=== PATIENT | male | born 1955 | race Caucasian/White ===

== ENCOUNTER → 2019-09-11 | Outpatient (CLI) | payer MEDICARE ==
--- NOTE | 2019-09-12 10:52 | ECHOF ---
Referral Reason:R06.02 R60.9 R00.0 MEASUREMENTS -------- HEIGHT: 188.0 cm WEIGHT: 104.8 kg BP: 110/72 RVIDd: 3.5 cm (< 3.3) IVSd: 1.3 cm (0.6 - 1.1) LVIDd: 5.3 cm (3.9 - 5.3) LVPWd: 1.2 cm (0.6 - 1.1) IVSs: 1.5 cm LVIDs: 5.0 cm LVPWs: 1.5 cm LA Diam: 4.0 cm (2.7 - 3.8) LAESV Index (A-L): 32.13 ml/m Ao Diam: 3.5 cm (2.0 - 3.7) AV Cusp: 2.2 cm (1.5 - 2.6) MV EXCURSION: 18.048 mm (> 18.000) MV EF SLOPE: 93 mm/s (70 - 150) EPSS: 1.9 cm RAP: 5.00 mmHg RVSP: 45.27 mmHg FINDINGS -------- Resting tachycardia (HR>100bpm). This was a technically difficult study with suboptimal apical views. The left ventricular size is normal. There is mild concentric left ventricular hypertrophy. Overa ll left ventricular systolic function is severely impaired with, an EF between 20 - 25 %. The right ventricle is mildly enlarged. LA is midly dilated 29-33ml/m2. The right atrium is normal in size. 5 ml of Lumason was utilized for enhancement of images. Interatrial and interventricular septum intact. The aortic valve is trileaflet and appears structurally normal. The mitral valve leaflets are mildly thickened. Mild mitral annular calcification present. Mild m itral regurgitation is present. Mild tricuspid regurgitation present. There is mild pulmonary hypertension. The right ventricular systolic pressure, as measured by Doppler, is 45.27mmHg. Trace/mild (physiologic) pulmonic regurgitation. The aortic root size is normal. Normal inferior vena cava with normal inspiratory collapse consistent with estimated right atrial pre ssure of 5 mmHg. There is a trivial pericardial effusion present. Pleural Effusion with Fibrin. CONCLUSIONS -------- 1. Resting tachycardia (HR>100bpm). 2. This was a technically difficult study with suboptimal apical views. 3. The left ventricular size is normal. 4. There is mild concentric left ventricular hypertrophy. 5. Overall left ventricular systolic function is severely impaired with, an EF between 20 - 25 %. 6. The right ventricle is mildly enlarged. 7. LA is midly dilated 29-33ml/m2. 8. The right atrium is normal in size. 9. 5 ml of Lumason was utilized for enhancement of images. 10. Interatrial and interventricular septum intact. 11. The aortic valve is trileaflet and appears structurally normal. 12. The mitral valve leaflets are mildly thickened. 13. Mild mitral annular calcification present. 14. Mild mitral regurgitation is present. 15. Mild tricuspid regurgitation present. 16. There is mild pulmonary hypertension. 17. The right ventricular systolic pressure, as measured by Doppler, is 45.27mmHg. 18. Trace/mild (physiologic) pulmonic regurgitation. 19. The aortic root size is normal. 20. Normal inferior vena cava with normal inspiratory collapse consistent with estimated right atrial pressure of 5 mmHg. 21. There is a trivial pericardial effusion present. 22. Pleural Effusion with Fibrin. BAKERY TEAM MEMBER: Angelina Rivera RDCS
== END ==
LOC: RADECHMAIN 15:09
PROVIDERS: ATTEND Family Medicine
DX: I08.2 Rheumatic disorders of both aortic and tricuspid valves (principal); I27.20 Pulmonary hypertension, unspecified; R00.0 Tachycardia, unspecified; J90 Pleural effusion, not elsewhere classified; J94.1 Fibrothorax
CPT/HCPCS: 93306; Q9950

== ENCOUNTER → 2019-10-23 | Day surgery (SDC) | payer MEDICARE ==
[2019-10-19 14:28] VITALS: BMI 28.0
[~2019-10-23] MED LIST: ALPRAZolam 0.25 MG TAB PO PRN; ALPRAZolam 0.5 MG TAB PO PRN; ASPIRIN 325 MG TAB PO STA; ATORVASTATIN 80 MG TAB PO STA; IOPAMIDOL-370 125ML BTL INJ ONE; LIDOCAINE 1% INJ 10MG/ML (20 ML MDV) ONE; LIDOCAINE 1% INJ 10MG/ML (20 ML MDV) SQ ONE; MIDAZOLAM 2 MG/2 ML VIAL IV ONE; NITROGLYCERIN SL TABS 0.4 MG TAB SUBLINGUAL PRN; RX INFO: IV CONTRAST WAS GIVEN 1 EACH MISC MISCELLANE PRN; SODIUM CHLORIDE 0.9% 1,000 ML IV SCH; SODIUM CHLORIDE 0.9% 1,000 ML in EMPTY BAG 1 BAG IV ONE
[2019-10-23 06:16] VITALS: TEMP 97.1
[2019-10-23 06:24] LABS: Glucose,Whole Blood 182 mg/dL (75-99)
--- NOTE | 2019-10-23 09:02 | CC ---
CARDIAC CATHETERIZATION REPORT DATE OF SERVICE: October 23, 2019 PERFORMING PHYSICIAN: Aaron Canales MD. PROCEDURE PERFORMED: 1. Right heart catheterization. 2. Left heart catheterization. 3. Selective left and right coronary angiogram. INDICATION: This is a 64-year-old gentleman with history of diabetes, hypertension, and dyslipidemia, who was experiencing some symptoms of shortness of breath with exertion. He underwent an echocardiogram which revealed severe cardiomyopathy with EF of 20%. Because of that, a heart catheterization was advised. APPROACH: Right common femoral artery and right common femoral vein. COMPLICATION: None. LEVEL OF SEDATION: Moderate with sedation length of 33 minutes. PROCEDURE DESCRIPTION: After obtaining an informed consent, the patient was brought to the cardiac oven laborer. The right common femoral vein was cannulated using micropuncture technique, the micropuncture wire passed easily then I placed an 8-Thai sheath in the vein. Subsequently I cannulated the artery using micropuncture technique, the micropuncture wire passed easily then I placed a 6-Thai sheath in the right common femoral artery. After that I did right heart catheterization using 6-Thai swan catheter. I could not get to the PA pressure because the catheter will not point up. I did the RV pressure and RA pressure. After that I did selective right and left coronary angiogram using JR4 and JL4 catheters. Left heart catheterization was performed using 6-Thai pigtail catheter. The procedure was completed without any complication. SELECTIVE CORONARY ANGIOGRAM: 1. The right coronary artery is a large caliber vessel and is a dominant vessel. It is calcified. The proximal right has mild disease only. The mid right has mild disease only. The right in the mid to distal portion has intermediate to severe lesion appeared to be in the range of 60%. Then right after that bifurcates into PDA and PLV branches. The PLV branch has a tight lesion about 80% to 90%, but it is only 2 to 2.5 vessel. 2. The left main is calcified with eccentric lesion appeared to be in the range of 30% to 40%. Bifurcates into LCX, ramus intermedius, and left anterior descending artery. 3. The LCX is a small to medium caliber vessel and nondominant vessel. It does have mild disease only. 4. The ramus intermedius is a medium caliber vessel with mild disease only. 5. The LAD: The very proximal LAD has eccentric calcified lesion appeared to be in the range of 70% to 80%. The mid LAD has mild disease only and gives rise into a small to medium caliber diagonal branch which has a lesion appeared to be in the range of %. The LAD after that gives rise into a second diagonal branch which seems to be normal. The LAD distally appeared to be normal. HEMODYNAMICS: 1. The RV pressures were as follows, systolic 32 and end-diastolic of 8 mmHg. 2. RA pressure was 10 mmHg. 3. LVEDP was 16 mmHg. CONCLUSION: 1. Normal right heart pressures. 2. Elevated LVEDP. 3. Intermediate to severe disease involving the mid to distal RCA and severe disease involving the PLV branch of the RCA. 4. Wcal-ql-jpixtzql disease involving the left main coronary artery. 5. Severe disease involving the very proximal LAD. POSTPROCEDURE MANAGEMENT: 1. Probably proceeding with intravascular ultrasound IVUS of the left main. 2. Review the case with cardiothoracic surgeon. 3. If the left main turned to be not severe and the patient turned down by the cardiothoracic surgeon, I would consider doing PCI of the LAD with adjunctive use of Impella. MMODL / IJN: [id number] /
[2019-10-23 13:06] VITALS: BP 112/68; PULSE 98; RESP 16
== END ==
LOC: CATHCVL 05:51
PROVIDERS: ATTEND Internal Medicine Interventional Cardiology
DX: I25.10 Atherosclerotic heart disease of native coronary artery without angina pectoris (principal); I42.9 Cardiomyopathy, unspecified; I10 Essential (primary) hypertension; E78.00 Pure hypercholesterolemia, unspecified; E11.9 Type 2 diabetes mellitus without complications; E78.5 Hyperlipidemia, unspecified; Z88.0 Allergy status to penicillin; Z79.84 Long term (current) use of oral hypoglycemic drugs; Z79.899 Other long term (current) drug therapy; Z82.49 Family history of ischemic heart disease and other diseases of the circulatory system
CPT/HCPCS: 93460; C1769 ×3; C1751; C1894 ×2; J2250; J2001; Q9967

== ENCOUNTER 2019-11-08 06:18 | Day surgery (SDC) | payer MEDICARE ==
[2019-11-06 12:16] VITALS: BMI 28.0
[2019-11-08] MEDS ORDERED: ATORVASTATIN 80 MG TAB PO STA (06:25)
[2019-11-08] MEDS ORDERED: ALPRAZolam 0.5 MG TAB PO PRN (06:25)
[2019-11-08] MEDS ORDERED: SODIUM CHLORIDE 0.9% 1,000 ML in EMPTY BAG 1 BAG IV ONE (06:25)
[2019-11-08] MEDS ORDERED: ASPIRIN 325 MG TAB PO STA (06:25)
[2019-11-08] MEDS ORDERED: ALPRAZolam 0.25 MG TAB PO PRN (06:25)
[2019-11-08] MEDS ORDERED: NITROGLYCERIN SL TABS 0.4 MG TAB SUBLINGUAL PRN ×2 (06:25→09:06)
[2019-11-08] MEDS: INSULIN ASPART (NovoLOG) 100 UNIT/ML VIAL SQ SCH ×4 (07:08→20:12)
[2019-11-08 07:19] LABS: Glucose,Whole Blood 206 mg/dL (75-99)
[2019-11-08 07:53] LABS: Calcium 8.8 mg/dL (8.4-10.2); Potassium 4.3 mmol/L (3.5-5.1)
[2019-11-08] MEDS ORDERED: MIDAZOLAM 2 MG/2 ML VIAL IVP ONE ×2 (08:37→13:50)
[2019-11-08] MEDS ORDERED: LIDOCAINE 1% INJ 10MG/ML (20 ML MDV) SQ ONE (08:38)
[2019-11-08] MEDS ORDERED: BIVALIRUDIN BOLUS 250 MG/50 ML IV ONE (08:43)
[2019-11-08] MEDS ORDERED: BIVALIRUDIN 250 MG in SODIUM CHLORIDE 0.9% 50 ML IV ONE (08:44)
[2019-11-08] MEDS ORDERED: IOPAMIDOL-370 125ML BTL INJ ONE (09:00)
[2019-11-08] MEDS ORDERED: RX INFO: IV CONTRAST WAS GIVEN 1 EACH MISC MISCELLANE PRN (09:06)
[2019-11-08] MEDS ORDERED: ZOLPIDEM 5 MG TAB PO PRN (09:06)
[2019-11-08] MEDS ORDERED: MAG HYDROX/AL HYDROX/SIMETH 30 ML CUP PO PRN (09:06)
[2019-11-08] MEDS ORDERED: ATROPINE SULFATE 0.1 MG/ML 10ML SYRINGE IV PRN (09:06)
[2019-11-08] MEDS ORDERED: SODIUM CHLORIDE 0.9% 1,000 ML IV SCH (09:15)
--- NOTE | 2019-11-08 09:59 | PCN ---
PROCEDURE NOTE DATE OF SERVICE: November 08, 2019 PERFORMING PHYSICIAN: Aaron Canales MD. PROCEDURE PERFORMED: Intravascular ultrasound IVUS of the left anterior descending artery and left main coronary artery. INDICATION: This is a 64-year-old gentleman with history of diabetes as well as hypertension and dyslipidemia who was sent to see me for further evaluation of newly diagnosed cardiomyopathy. Clinically, the patient was having symptoms of shortness of breath with minimal exertion along with symptoms of being tired and fatigued and has no energy. He underwent a heart catheterization a few weeks ago and that showed at that point, mild- to-moderate disease involving the mid shaft of the left main along with severe disease involving the proximal left anterior descending artery along with severe disease involving the PLV branch of the RCA. At that point, the decision was made toward intravascular ultrasound IVUS of the left main and if that turned to be none significant proceed with PCI of the LAD. He was brought today to undergo an intravascular ultrasound IVUS of the left main. APPROACH: Right common femoral artery. COMPLICATION: None. LEVEL OF SEDATION: Moderate with sedation length of 23 minutes. PROCEDURE DESCRIPTION: After obtaining an informed consent, the patient was brought to the cardiac microbiology lab technician. The right common femoral artery was cannulated using micropuncture technique under ultrasound guidance, after the right groin was , the micropuncture wire passed easily then I placed a 6-[place] sheath in the right common femoral artery. At that point, anticoagulation was initiated using Angiomax with bolus and drip per protocol. Subsequently, I did engage the left main using JL4 guide. I did wire it using a long whisper J wire. After that, the ultrasound catheter was prepped and advanced over the 0.014 J-wire into the proximal LAD, then I did manual pullback. The procedure was completed without any complication. FINDINGS: We did measure the minimal luminal area of the left main coronary artery which came into be at 7.2 millimeter square as well as area stenosis which came in to be at 67%. At that point, we decided to stop and consult cardiothoracic surgeon to evaluate the patient. If the patient overall felt to be a good surgical candidate, then coronary artery bypass grafting will be performed. If the patient felt to be high risk for the surgery, I would perform an atherectomy and balloon angioplasty and stenting of both the left main as well as left anterior descending artery with adjunctive use of Impella. CONCLUSION: 1. Intermediate to severe disease involving the left main coronary artery. 2. The minimal luminal area was 7.2 millimeter square and the area stenosis was 67% by IVUS. 3. We will consult cardiothoracic surgeon to evaluate the patient. JOSE DE JESUS / SHERRIE: [id number] /
[2019-11-08] MEDS ORDERED: fentaNYL (PF) 50 MCG/ML 2 ML AMP ONE (13:34)
[2019-11-08 13:37] LABS: Glucose,Whole Blood 222 mg/dL (75-99)
[2019-11-08] MEDS ORDERED: IV FLUID CONTINUATION 1,000 ML IV ONE (13:42)
[2019-11-08] MEDS: BENZOCAINE SPRAY 1 CAN TOPICAL ONE ×2 (13:46→13:48)
[2019-11-08] MEDS: MIDAZOLAM 2 MG/2 ML VIAL IVP ONE ×2 (13:48→14:00)
[2019-11-08] MEDS: fentaNYL (PF) 50 MCG/ML 2 ML AMP IVP ONE ×2 (13:48→13:50)
--- NOTE | 2019-11-08 14:24 | P.GSCN ---
History of Present Illness Consult date: 11/08/19 Reason for Consult: Coronary artery disease with left main disease Requesting physician: Aaron Canales History of present illness: This is a 64-year-old gentleman who follows on an outpatient basis with Dr. Enrrique Joseph. He has a previous medical history of hypertension, hyperlipidemia, type 2 diabetes mellitus, and new diagnosis of cardiomyopathy. Apparently he had been experiencing shortness of breath over the last several months. He used to walk approximated 2 miles a day but by the end of the summer of this year he noticed he was getting more short of breath, it was becoming harder to do the things he loved, he was constantly tired and fatigued and just had no energy. By August he also noticed lower extremity edema. He brought the symptoms to the attention of his primary care physician who ordered a trans- thoracic echocardiogram which demonstrated reduced left ventricular systolic function with an EF 20-25%, mild mitral regurgitation, mild tricuspid regurgitation, and mild pulmonary hypertension with RVSP 45.27. Due to his symptoms and echocardiogram results he was referred to Dr. Canales from [facility]. At that time the patient was started on Aldactone, lisinopril, and Lopressor, and was recommended to undergo heart catheterization. In September the patient did have a heart catheterization demonstrating left main stenosis 30-40%, proximal LAD stenosis 70-80%, mid to distal RCA 60%, and PLV 80-90%. Dr. Canales recommended the patient be discharged home to come back for IVUS. Aspirin and Crestor were added to his medication regimen. This morning the patient reported to the heart catheterization lab for IVUS which demonstrated 7.2 mm minimal luminal area of the left main coronary artery with stenosis 67%. Due to these findings Dr. Esparza from cardiothoracic surgery was consulted for recommendations for surgical revascularization versus stenting Review of Systems Review of systems was completed and was negative except as noted - Constitutional Reports fatigue - Cardiovascular Reports as per HPI, Reports decreased exercise tolerance, Reports dyspnea on exertion, Reports leg edema, Reports shortness of breath - Respiratory Reports dyspnea Past Medical History Past Medical History: Coronary Artery Disease (CAD), Diabetes Mellitus, Hyperlipidemia, Hypertension History of Any Multi-Drug Resistant Organisms: None Reported Past Surgical History: Heart Catheterization Additional Past Surgical History / Comment(s): PILONIDAL CYST X2 Past Anesthesia/Blood Transfusion Reactions: No Reported Reaction Past Psychological History: No Psychological Hx Reported Smoking Status: Never smoker Past Alcohol Use History: None Reported Past Drug Use History: None Reported - Past Family History Brother(s) Family Medical History: Deep Vein Thrombosis (DVT) Additional Family Medical History / Comment(s): FROM BLOOD CLOTS POST SURGERY 5 YEARS AGO Medications and Allergies Home Medications Medication Instructions Recorded Confirmed Type Furosemide [Lasix] 20 mg PO 1200 10/19/19 11/08/19 History Furosemide [Lasix] 40 mg PO QAM 10/19/19 11/08/19 History Metoprolol Tartrate 25 mg PO BID 10/19/19 11/08/19 History Spironolactone 25 mg PO DAILY 10/19/19 11/08/19 History sitaGLIPtin PHOSPHATE [Januvia] 100 mg PO DAILY 10/19/19 11/08/19 History Aspirin [Adult Low Dose Aspirin EC] 81 mg PO HS 11/06/19 11/08/19 History Rosuvastatin [Crestor] 20 mg PO DAILY 11/06/19 11/08/19 History Allergies Allergy/AdvReac Type Severity Reaction Status Date / Time Penicillins Allergy Anaphylaxis Verified 11/08/19 06:48 Surgical - Exam Vital Signs Temp Pulse Resp BP Pulse Ox 96.9 F L 90 18 119/74 100 11/08/19 07:18 11/08/19 07:18 11/08/19 07:18 11/08/19 07:18 11/08/19 07:18 - General well developed, well nourished, no distress, no pain - Eyes PERRL, normal ocular movement - ENT no hearing loss - Neck no masses, no bruits, trachea midline - Respiratory Lungs sounds clear bilaterally. Respirations even, nonlabored. Currently on room air with oxygen saturation 98%. No chest wall deformities. No clubbing or cyanosis present. - Cardiovascular S1, S2 present. Regular rate and rhythm, sinus rhythm on telemetry. Palpable peripheral pulses bilaterally. No edema present. No calf pain or tenderness noted. No varicosities noted. - Abdomen Abdomen: soft, non tender, bowel sounds - Genitourinary Deferred - Rectum Deferred - Integumentary no rash, no growths - Neurologic normal coordination, normal sensation - Musculoskeletal normal posture - Psychiatric oriented to time, oriented to person, oriented to place, speech is normal, memory intact Results - Labs 11/08/19 07:25 Abnormal Lab Results - Last 24 Hours (Table) 11/08/19 11/08/19 Range/Units 07:00 07:25 BUN 39 H (9-20) mg/dL Creatinine 1.33 H (0.66-1.25) mg/dL Glucose 213 H (74-99) mg/dL POC Glucose (mg/dL) 206 H (75-99) mg/dL Diabetes panel 11/08/19 Range/Units 07:25 Sodium 139 (137-145) mmol/L Potassium 4.3 (3.5-5.1) mmol/L Chloride 104 (98-107) mmol/L Carbon Dioxide 24 (22-30) mmol/L BUN 39 H (9-20) mg/dL Creatinine 1.33 H (0.66-1.25) mg/dL Glucose 213 H (74-99) mg/dL Calcium 8.8 (8.4-10.2) mg/dL Calcium panel 11/08/19 Range/Units 07:25 Calcium 8.8 (8.4-10.2) mg/dL Pituitary panel 11/08/19 Range/Units 07:25 Sodium 139 (137-145) mmol/L Potassium 4.3 (3.5-5.1) mmol/L Chloride 104 (98-107) mmol/L Carbon Dioxide 24 (22-30) mmol/L BUN 39 H (9-20) mg/dL Creatinine 1.33 H (0.66-1.25) mg/dL Glucose 213 H (74-99) mg/dL Calcium 8.8 (8.4-10.2) mg/dL Adrenal panel 11/08/19 Range/Units 07:25 Sodium 139 (137-145) mmol/L Potassium 4.3 (3.5-5.1) mmol/L Chloride 104 (98-107) mmol/L Carbon Dioxide 24 (22-30) mmol/L BUN 39 H (9-20) mg/dL Creatinine 1.33 H (0.66-1.25) mg/dL Glucose 213 H (74-99) mg/dL Calcium 8.8 (8.4-10.2) mg/dL - Imaging EKG: image reviewed Additional studies: Heart catheterization films and transthoracic echocardiogram films reviewed with Dr. Esparza Assessment and Plan Assessment: 1. Coronary artery disease with left main disease 2. Cardiomyopathy with ejection fraction 20-25% per surface echo 3. Mild mitral regurgitation, mild tricuspid regurgitation on surface echo 4. Hypertension 5. Hyperlipidemia 6. Type 2 diabetes 7. Family history of heart disease Plan: The patient was seen and examined at the bedside in the extended stay area with Dr. Esparza. Discharge and diagnostics were reviewed in detail. Case was discussed between Dr. Esparza and Dr. Canales in detail. Dr. Esparza discussed the patient's disease process. In view of patient presentation with heart failure, we will recommend obtaining MAILE for further assessment of mitral valve before final opinion regarding surgery versus PCI. Addendum: MAILE performed and shows severe left ventricle dysfunction, moderate mitral valve and tricuspid valve regurgitation, moderate to severe pulmonary hypertension. The left ventricle is dilated with global hypokinesia. The physician report is pending. Further discussion will go Dr. Canales. Would recommend continuing optimizing medical therapy for heart failure and obtaining cardiac MRI for ultimate assessment of viability, function and mitral valve regurgitation. Patient will be followed as an outpatient after obtaining the later. Time with Patient: Greater than 30
--- NOTE | 2019-11-08 14:37 | ECHOT ---
TRANSESOPHAGEAL ECHOCARDIOGRAM DATE OF SERVICE: 11/08/2019 PERFORMING PHYSICIAN: Aaron Canales MD. PROCEDURE PERFORMED: Transesophageal echocardiogram. INDICATION: This is a 64-year-old gentleman with history of cardiomyopathy who was brought today to undergo a heart catheterization. The heart catheterization revealed disease involving the left main coronary artery as well as proximal left anterior descending artery. He was referred to be seen by cardiothoracic surgeon for the evaluation of coronary artery bypass grafting. The MAILE to assess the severity of mitral regurgitation. COMPLICATION: None. LEVEL OF SEDATION: Moderate with sedation length of 15 minutes. PROCEDURE DESCRIPTION: After obtaining an informed consent, the patient was brought to the cardiac biological lab technician. The pulse oximetry and heart rate monitors were attached to the patient. Subsequently, the bite guard was placed after the throat was sprayed using lidocaine. Subsequently, the patient was turned into left lateral position. The transesophageal echocardiogram probe was advanced through the bite guard to the mid esophagus, where 2D echocardiogram images as well as color Doppler images of various cardiac structures were obtained. Particular attention was made to the mitral valve and mitral valve apparatus. We did also interrogate the interatrial septum using bubble study. We did also 2D echocardiogram images, color Doppler images, pulse-wave Doppler images, and continuous- wave Doppler images as well. The procedure was completed without any complication. FINDINGS: The left ventricle appeared to be dilated. The left ventricular systolic function is impaired with EF between 15%-20% with global hypokinesia. The right ventricle appeared to be within normal limits for dimension. The left atrium and right atrium are mildly dilated. The left atrial appendage appeared to be free from any thrombus. The interatrial septum appeared to be intact. The aortic valve appeared to be trileaflet valve with sclerotic changes and mild insufficiency and without any stenosis. The mitral valve seems to be thickened with thickened anterior mitral leaflet and evidence of moderate mitral insufficiency by color-flow Doppler as well as by quantitative measurements. We did PISA and that came into be in the moderate range. The tricuspid valve showed evidence of moderate tricuspid insufficiency. The pulmonary artery systolic pressure was calculated to be 65 mmHg, indicating severe pulmonary hypertension. CONCLUSION: 1. Severely impaired left ventricular function with ejection fraction between 15%-20%. 2. Normal right ventricular dimension and systolic function. 3. Mild biatrial enlargement. 4. Normal left atrial appendage. 5. Intact interatrial septum. 6. Aortic sclerosis without stenosis with mild insufficiency. 7. Thickened mitral valve, mildly thickened anterior mitral leaflets with evidence of moderate mitral insufficiency. 8. Moderate tricuspid insufficiency. 9. Severe pulmonary hypertension. 10.No evidence of pericardial effusion. MMODL / IJN: [id number] /
[2019-11-08 16:47] LABS: Glucose,Whole Blood 175 mg/dL (75-99)
[2019-11-08 20:11] LABS: Glucose,Whole Blood 184 mg/dL (75-99)
[2019-11-08 23:41] VITALS: RESP 18; TEMP 98.4
[2019-11-09 07:04] LABS: Glucose,Whole Blood 176 mg/dL (75-99)
[2019-11-09 07:57] VITALS: BP 115/84; PULSE 103
[2019-11-09] MEDS: INSULIN ASPART (NovoLOG) 100 UNIT/ML VIAL SQ SCH (08:53)
--- NOTE | 2019-11-09 11:32 | P.DS ---
Providers Date of admission: 11/08/2019 Attending physician: Aaron Canales Consults: 11/08/19 09:06 Consult Physician Routine Consulting Provider: [facility] Consult Reason/Comments: Post Interventional patient Do you want consulting provider notified?: Already Contacted [facility] Course: This is a pleasant 64-year-old gentleman with history of diabetes, hypertension, and dyslipidemia, who was diagnosed recently was cardiomyopathy. He was experiencing shortness of breath with exertion. He underwent a heart catheterization which revealed intermediate disease in the left main coronary artery and severe disease involving the left anterior descending artery. The patient underwent yesterday intravascular ultrasound DAIANA of the left main which showed a minimal luminal area of 7.2 mm with an area stenosis of 67%. He was seen by cardiothoracic surgeon who recommended doing a MAILE which revealed moderate MR only with impaired LV function and EF of 20%. The plan is to undergo an MRI as an outpatient. He was seen this morning. He denies any chest pain or chest discomfort. The right groin is soft and nontender and without any bruises. The patient is going to be discharged home on and I will follow-up with the patient next week in the office Plan - Discharge Summary Discharge Rx Participant: No New Discharge Prescriptions: Continue sitaGLIPtin PHOSPHATE [Januvia] 100 mg PO DAILY Furosemide [Lasix] 40 mg PO QAM Furosemide [Lasix] 20 mg PO 1200 Spironolactone 25 mg PO DAILY Metoprolol Tartrate 25 mg PO BID Rosuvastatin [Crestor] 20 mg PO DAILY Aspirin [Adult Low Dose Aspirin EC] 81 mg PO HS Discontinued metFORMIN HCL [Glucophage] 500 mg PO BID Discharge Medication List Furosemide [Lasix] 20 mg PO 1200 10/19/19 [History] Furosemide [Lasix] 40 mg PO QAM 10/19/19 [History] Metoprolol Tartrate 25 mg PO BID 10/19/19 [History] Spironolactone 25 mg PO DAILY 10/19/19 [History] sitaGLIPtin PHOSPHATE [Januvia] 100 mg PO DAILY 10/19/19 [History] Aspirin [Adult Low Dose Aspirin EC] 81 mg PO HS 11/06/19 [History] Rosuvastatin [Crestor] 20 mg PO DAILY 11/06/19 [History] Follow up Appointment(s)/Referral(s): Aaron Canales MD [STAFF PHYSICIAN] - 11/16/19 3:00 pm ( ) Magdaleno Esparza MD [STAFF PHYSICIAN] - As Needed Patient Instructions/Handouts: *Surgery [facility] - After Heart Catheterization - [facility] Instructions Activity/Diet/Wound Care/Special Instructions: *NO LIFTING, PUSHING, OR PULLING ANYTHING OVER 10 POUNDS FOR 5 DAYS *NO DRIVING FOR 3 DAYS *YOU CAN SHOWER TOMORROW BUT DO NOT SUBMERSE YOUR PUNCTURE SITE IN WATER TO PREVENT INFECTION - SO NO TUB BATHS, POOLS, HOT TUBS, DISHES...ETC. *
== END 2019-11-09 10:35 ==
LOC: CATHCVL 06:18 → 1SOBS 14:20 → CATHCVL 11-09 10:35
PROVIDERS: ATTEND Internal Medicine Interventional Cardiology
DX: I25.10 Atherosclerotic heart disease of native coronary artery without angina pectoris (principal); I08.3 Combined rheumatic disorders of mitral, aortic and tricuspid valves; I27.20 Pulmonary hypertension, unspecified; I25.5 Ischemic cardiomyopathy; I10 Essential (primary) hypertension; I42.9 Cardiomyopathy, unspecified; E11.9 Type 2 diabetes mellitus without complications; E78.5 Hyperlipidemia, unspecified; Z79.82 Long term (current) use of aspirin; Z79.84 Long term (current) use of oral hypoglycemic drugs; Z79.899 Other long term (current) drug therapy; Z88.0 Allergy status to penicillin; Z82.49 Family history of ischemic heart disease and other diseases of the circulatory system
CPT/HCPCS: 94760; 93312; 93320; 93325; 92978; 93454; 80048; 82565; C1769 ×3; C1887; C1894; C1753; J2250; J2001; J3010; J0583; Q9967

== ENCOUNTER → 2020-04-16 | Outpatient (CLI) | payer MEDICARE ==
[2020-04-16 11:23] LABS: INR 0.9 (<1.2); Prothrombin Time 9.7 sec (9.0-12.0)
[2020-04-16 11:29] LABS: HCT 35.7 % (39.0-53.0); HGB 11.1 gm/dL (13.0-17.5); MCH 28.7 pg (25.0-35.0); MCV 92.6 fL (80.0-100.0); Mean Platelet Volume 7.4; Platelet Count 303 k/uL (150-450); RBC 3.86 m/uL (4.30-5.90); RDW 12.7 % (11.5-15.5); WBC 6.6 k/uL (3.8-10.6)
[2020-04-16 18:48] LABS: African American GFR (CKD) 60.3 (60.0-200.0); Anion Gap 11.6 mmol/L (4.00-12.00); BUN/Creat Ratio 37.14 Ratio (12.00-20.00); Calcium 9.6 mg/dL (8.7-10.3); Carbon Dioxide 26.4 mmol/L (21.6-31.8); Potassium 5.2 mmol/L (3.5-5.5)
== END | disposition home or self-care (01) ==
LOC: LABWHC1 10:30
PROVIDERS: ATTEND Internal Medicine
DX: Z01.818 Encounter for other preprocedural examination (principal); I25.10 Atherosclerotic heart disease of native coronary artery without angina pectoris; Z11.59 Encounter for screening for other viral diseases
CPT/HCPCS: 36415; 80048; 85027; 85610; 87635

== ENCOUNTER → 2021-04-30 | Outpatient (CLI) | payer MEDICARE ==
--- NOTE | 2021-04-30 17:24 | ECHOF ---
Referral Reason:I50.42, I25.10, I10, I27.20 MEASUREMENTS -------- HEIGHT: 182.9 cm WEIGHT: 104.3 kg BP: RVIDd: 3.3 cm (< 3.3) IVSd: 1.2 cm (0.6 - 1.1) LVIDd: 4.8 cm (3.9 - 5.3) LVPWd: 1.3 cm (0.6 - 1.1) IVSs: 1.5 cm LVIDs: 3.7 cm LVPWs: 1.3 cm LA Diam: 3.7 cm (2.7 - 3.8) Ao Diam: 3.4 cm (2.0 - 3.7) AV Cusp: 2.4 cm (1.5 - 2.6) MV EXCURSION: 15.618 mm (> 18.000) MV EF SLOPE: 90 mm/s (70 - 150) EPSS: 0.7 cm MV E Stu: 0.51 m/s MV DecT: 203 ms MV A Stu: 0.76 m/s MV E/A Ratio: 0.67 RAP: 5.00 mmHg RVSP: 18.87 mmHg FINDINGS -------- Sinus rhythm. This was a techncally difficult study with suboptimal views, , Lumason utilized for enhancement of im ages. LV size, wall thickness and systolic function are normal, with an EF greater than 55%. The left william tricular size is normal. The right ventricle is normal in size. The left atrial size is normal. The right atrial size is normal. 5.0mg OF Lumason UTLIZED: 2 OR MORE WALL SEGMENTS NOT VISUALIZED. There is mild aortic valve sclerosis. There is no evidence of aortic regurgitation. Mild mitral regurgitation is present. Mild tricuspid regurgitation present. Right ventricular systolic pressure is normal at < 35 mmHg. There is no pulmonic regurgitation present. Echo free space represents a pericardial fat pad. CONCLUSIONS -------- 1. This was a techncally difficult study with suboptimal views, , Lumason utilized for enhancement of images. 2. LV size, wall thickness and systolic function are normal, with an EF greater than 55%. 3. The left ventricular size is normal. 4. The right ventricle is normal in size. 5. The left atrial size is normal. 6. The right atrial size is normal. 7. 5.0mg OF Lumason UTLIZED: 2 OR MORE WALL SEGMENTS NOT VISUALIZED. 8. There is mild aortic valve sclerosis. 9. Mild mitral regurgitation is present. 10. Mild tricuspid regurgitation present. 11. Echo free space represents a pericardial fat pad. BRIM STITCHER: Irene Hdez RDCS
== END | disposition home or self-care (01) ==
LOC: RADECHMAIN 10:58
PROVIDERS: ATTEND Internal Medicine
DX: I08.1 Rheumatic disorders of both mitral and tricuspid valves (principal)
CPT/HCPCS: 93306

== ENCOUNTER → 2024-03-20 | Outpatient (CLI) | payer MEDICARE ==
--- NOTE | 2024-03-20 20:01 | CA ---
Transthoracic Echo Report Name: Aaron Ronquillo Age: 68 Gender: M : 1955 Exam Date: 03/20/2024 13:46 Exam Location: [facility] Ht (in): 74 Wt (lb): 243 Ordering Physician: Enrrique Joseph DO Attending/Referring Phys: Enrrique Joseph DO Therapist Radiation Krystina Murguia RDCS Procedure CPT: Indications: I25.5 ISCHEMIC CARDIOMYOPATHY Cardiac Hx: Technical Quality: Fair Contrast 1: Total Dose (mL): Contrast 2: Total Dose (mL): MEASUREMENTS (Male / Female) Normal Values 2D ECHO LV Diastolic Diameter PLAX 4.4 cm 4.2 - 5.9 / 3.9 - 5.3 cm LV Systolic Diameter PLAX 3.3 cm IVS Diastolic Thickness 1.3 cm 0.6 - 1.0 / 0.6 - 0.9 cm LVPW Diastolic Thickness 1.2 cm 0.6 - 1.0 / 0.6 - 0.9 cm LV Relative Wall Thickness 0.6 RV Internal Dim ED PLAX 3.6 cm LVOT Diameter 2.2 cm LV Diastolic Volume MOD BP 133.0 cm??? 67 - 155 / 56 - 104 cm??? LV Systolic Volume MOD BP 77.2 cm??? 22 - 58 / 19 - 49 cm??? LV Ejection Fraction MOD BP 41.9 % >= 55 % LV Cardiac Index MOD BP 1999.5 cm???/min???m??? LV Diastolic Volume MOD 4C 144.5 cm??? LV Systolic Volume MOD 4C 83.0 cm??? LV Ejection Fraction MOD 4C 42.6 % LV Cardiac Index MOD 4C 2208.9 cm???/min???m??? LV Diastolic Length 4C 8.7 cm LV Systolic Length 4C 8.3 cm LV Diastolic Volume MOD 2C 119.6 cm??? LV Systolic Volume MOD 2C 67.2 cm??? LV Ejection Fraction MOD 2C 43.8 % LV Cardiac Index MOD 2C 1880.1 cm???/min???m??? LV Diastolic Length 2C 9.0 cm LV Systolic Length 2C 7.7 cm M-MODE Aortic Root Diameter MM 3.9 cm LA Systolic Diameter MM 4.0 cm LA Ao Ratio MM 1.0 AV Cusp Separation MM 2.3 cm DOPPLER AV Peak Velocity 98.8 cm/s AV Peak Gradient 3.9 mmHg AV Mean Velocity 67.2 cm/s AV Mean Gradient 2.0 mmHg AV Velocity Time Integral 19.9 cm LVOT Peak Velocity 74.8 cm/s LVOT Peak Gradient 2.2 mmHg LVOT Velocity Time Integral 17.1 cm LVOT Stroke Volume 62.3 cm??? LVOT Stroke Volume Index 26.4 ml/m??? LVOT Cardiac Index 2235.3 cm???/min???m??? AV Area Cont Eq vti 3.1 cm??? AV Area Cont Eq pk 2.8 cm??? MV Area PHT 3.6 cm??? Mitral E Point Velocity 64.5 cm/s Mitral A Point Velocity 85.0 cm/s Mitral E to A Ratio 0.8 MV Deceleration Time 208.5 ms MV E' Velocity 4.4 cm/s Mitral E to MV E' Ratio 14.6 TR Peak Velocity 215.6 cm/s TR Peak Gradient 18.6 mmHg Right Ventricular Systolic Press 23.6 mmHg FINDINGS Left Ventricle Mildly increased left ventricular wall thickness. Moderately increased left ventricular systolic volume. Moderately decreased left ventricular ejection fraction. Left ventricular ejection fraction is estimated at 45-50 %. Right Ventricle Mild right ventricular dilatation. Right ventricular systolic pressure within normal limits. Right Atrium Normal right atrial size. Left Atrium Normal left atrial size. Mitral Valve Structurally normal mitral valve. No mitral stenosis, regurgitation or prolapse. Aortic Valve Trileaflet aortic valve. No aortic valve stenosis or regurgitation. Tricuspid Valve Structurally normal tricuspid valve. Mild tricuspid regurgitation. Pulmonic Valve Structurally normal pulmonic valve. Pericardium No pericardial effusion. Aorta Normal size aortic root and proximal ascending aorta. CONCLUSIONS Normal LV size left ventricular ejection fraction 45% Mild RV enlargement Previewed by: Dr. Tadeo Alonso MD (Electronically Signed) Final Date: 20 March 2024 20:00
== END | disposition home or self-care (01) ==
LOC: RADECHMAIN 13:19
PROVIDERS: ATTEND Family Medicine
DX: I25.5 Ischemic cardiomyopathy (principal); I50.22 Chronic systolic (congestive) heart failure; E11.65 Type 2 diabetes mellitus with hyperglycemia
CPT/HCPCS: C8929; Q9957; 93306